=== PATIENT | male | born 1975 | race Caucasian/White ===

== ENCOUNTER 2018-09-13 06:00 | Day surgery (SDC) | payer OTHER ==
[~2018-09-13] VITALS: Ht 177.8 cm; Wt 99.8 kg
[2018-09-13] MEDS ORDERED: NAPROSYN500 MG PO (06:21)
--- NOTE | 2018-09-13 09:14 | NUR ---
09/13/18 0914 Caitlin Berumen 0827 PT ARRIVED IN PACU SLEEPY WITH NO C/O'S. R FOOT ELEVATED AND MOVING TOES. TRANSPORT GUARDS AT BEDSIDE. 0900 OXYGEN DECREASED TO 6L VIA MASK WITH SATS 100%. 904 OXYGEN REMOVED. SATS 99% ON RA. 908 C/O R HEEL PAIN 5/10. FENTANYL 25MCG GIVEN IVP. 913 NO CHANGE IN PAIN LEVEL. FENTANYL 25MCG GIVEN IVP.
[2018-09-13] MEDS ORDERED: NORCO 10-325 T1 EACH PO (10:05)
--- NOTE | 2018-09-13 11:24 | NUR ---
HAS EATEN PUDDING DRANK WATER JUICE. TAKEN PAIN PILLS RATES PAIN 2/10. WEARING BOOT, DRESSING CLEAN AND DRY. READY TO GO HOME DENIES NEED TO VOID. REPORT CALLED TO [facility].
--- NOTE | 2018-09-13 11:35 | NUR ---
TO ASSIST WITH DRESSING BOOT OFF WITH SUPPORT TO GET PANTS OVER AND IMMEDIATELY BACK ON.
--- NOTE | 2018-09-15 07:17 | OR ---
[facility] [address], [place] [address] Signed DATE OF OPERATION: 09/13/2018 SURGEON: Osvaldo Salazar MD PREOPERATIVE DIAGNOSIS: Chronic insertional Achilles tendinosis. POSTOPERATIVE DIAGNOSIS: Chronic insertional Achilles tendinosis. PROCEDURE: Debridement of the heel cord, removal of Shari deformity, and repair of the Achilles tendon insertion. ANESTHESIA: General. SPECIMENS AND COMPLICATIONS: There were no specimens or complications. TOURNIQUET TIME: About 1 hour and 15 minutes. WHAT WAS DONE: The patient was taken to the operating room. After anesthesia was induced and airway secured, the patient was placed in the prone position and prepped and draped in a routine sterile fashion. A longitudinal incision was made over the distal 5 cm of the heel cord and over the heel cord insertion. It was then split longitudinally and peeled the heel cord off the accessory ossicle identified on the x-ray and delivered two large bony fragments out onto the field. We then debrided the areas of necrotic heel cord. The wound was gently irrigated. We used a small rongeur and an osteotome to scarify the dorsal surface of the calcaneus extra-articularly. We then used an [employer] Speed Bridge to repair the heel cord using the standard Speed Bridge construct. We then closed the longitudinal incision in the heel cord with 0 FiberWire. The subcutaneous tissue was closed with undyed 0 Vicryl and skin was closed with nylon. A sterile dressing was applied. The patient was placed in a bulky dressing and a boot and awakened, taken to the recovery room where he arrived in stable condition. Counts were correct and antibiotic protocols were followed. Electronically Signed By: OSVALDO SALAZAR MD 09/15/18 0717 PATIENT NAME: EKATERINA JOSE OPERATIVE REPORT DATE OF : 79 REPORT #: [id number] PHYSICIAN: OSVALDO SALAZAR MD PCP: CESAR ARAIZA MD REPORT IS CONFIDENTIAL AND NOT TO BE RELEASED WITHOUT AUTHORIZATION [address] [address] Signed Osvaldo Salazar MD WFB/MODL /[id number] Copies: ~ Electronically Signed By: OSVALDO SALAZAR MD 09/15/18 0717 PATIENT NAME: EKATERINA JOSE OPERATIVE REPORT DATE OF : 79 REPORT #: [id number] PHYSICIAN: OSVALDO SALAZAR MD PCP: CESAR ARAIZA MD REPORT IS CONFIDENTIAL AND NOT TO BE RELEASED WITHOUT AUTHORIZATION
== END 2018-09-13 11:20 | disposition home or self-care (01) ==
LOC: DS 06:00 → OPS 06:00 → DS 06:45 → OPS 11:20
PROVIDERS: Orthopaedic Surgery
PROC: 0LQN0ZZ Repair Right Lower Leg Tendon, Open Approach (ICD-10-PCS; principal; 2018-09-13 06:45)
DX: M67.873 Other specified disorders of tendon, right ankle and foot (principal); M79.604 Pain in right leg; G89.29 Other chronic pain; Z79.1 Long term (current) use of non-steroidal anti-inflammatories (NSAID)
CPT/HCPCS: 01472; 62322; 64445; 73650; 76942; C1713; J0330; J0690; J1100; J1885; J2250; J2405; J2704; J2765; J3010; J7120; L4386